=== PATIENT | male | born 1950 | race Caucasian/White ===

== ENCOUNTER 2016-12-31 09:59 | Emergency (ER) | payer OTHER ==
[~2016-12-31] VITALS: Ht 172.7 cm; Wt 81.8 kg
[2016-12-31 10:00] VITALS: BP 151/82; PULSE 71; RESP 18; TEMP 98.3; O2SAT 94
[2016-12-31] MEDS ORDERED: LIDOCAINE HCL 1% 50 ML VIAL INFIL ONE (10:15)
[2016-12-31] MEDS ORDERED: ASPI81CH6 CHEW (10:15)
[2016-12-31] MEDS ORDERED: NEXI20CA PO (10:15)
[2016-12-31] MEDS ORDERED: ATEN50TA PO (10:15)
[2016-12-31] MEDS ORDERED: HYDR50TA3 PO (10:15)
[2016-12-31] MEDS ORDERED: ROSU5 PO (10:15)
--- NOTE | 2016-12-31 10:28 | RADRPT ---
EXAM DATE/TIME: 12/31/2016 10:17 [place] COMPARISON: No previous studies available for comparison. INDICATIONS : Right thumb laceration after cutting finger on saw MEDICAL HISTORY : None. SURGICAL HISTORY : None. ENCOUNTER: Initial ACUITY: 1 day PAIN SCORE: 3/10 LOCATION: Right thumb FINDINGS: Slightly comminuted tuft fracture of the right thumb. No radiopaque foreign bodies. Associated soft t issue injury involving the palmar aspect of the distal thumb. CONCLUSION: 1. Slightly comminuted right thumb tuft fracture. Kwasi Aldrich MD on December 31, 2016 at 10:25 Board Certified Radiologist. This report was verified electronically.
[2016-12-31] MEDS ORDERED: ceFAZolin 2 GM PREMIX 50 ML IV ONE (11:15)
--- NOTE | 2016-12-31 12:29 | PD ---
HPI Chief Complaint: Laceration/Skin Injury Time Seen by Provider: 10:09 Travel History International Travel<30 days: No Contact w/Intl Traveler<30days: No Traveled to known affect area: No History of Present Illness HPI 66-year-old male here with laceration to his right thumb caused by a wood saw. Injury occurred prior to arrival. Patient reports normal sensation and full range of motion of thumb. He has a 3 cm laceration to the distal aspect of the thumb. Bleeding is well-controlled. Tetanus immunization is up-to-date. Patient reports pain at the site of the laceration with no alleviating factors. PFSH Past Medical History Hx Anticoagulant Therapy: Yes (ASA 81MG DAILY) High Cholesterol: Yes GERD: Yes Hypertension: Yes Tetanus Vaccination: < 5 Years Influenza Vaccination: No Past Surgical History Surgical History: No Previous Surgery Social History Alcohol Use: Yes (DAILY WINE TASTING) Tobacco Use: No Substance Use: No Allergies-Medications (Allergen,Severity, Reaction): Coded Allergies: No Known Allergies (Verified Allergy, Severe, 12/31/16) Reported Meds & Prescriptions Reported Meds & Active Scripts Active Keflex (Cephalexin) 500 Mg Cap 500 Mg PO Q6H 7 Days Reported Aspirin Low Dose (Aspirin) 81 Mg Chew 81 Mg CHEW DAILY Crestor (Rosuvastatin Calcium) 5 Mg Tab 5 Mg PO DAILY Nexium (Esomeprazole DR) 20 Mg Capdr 20 Mg PO DAILY Hydrochlorothiazide 50 Mg Tab 50 Mg PO DAILY Atenolol 50 Mg Tab 50 Mg PO DAILY Review of Systems Except as stated in HPI: all other systems reviewed are Neg Physical Exam Narrative GENERAL: Well-nourished, well-developed patient. In no acute distress. SKIN: Focused skin assessment warm/dry. 3CM laceration to the distal aspect of the right thumb. No tendon injury. No visible bone. Fingernail is firmly in place. Brisk cap refill HEAD: Normocephalic. EYES: No scleral icterus. No injection or drainage. NECK: Supple, trachea midline. No JVD or lymphadenopathy. CARDIOVASCULAR: Regular rate and rhythm without murmurs, gallops, or rubs. RESPIRATORY: Breath sounds equal bilaterally. No accessory muscle use. GASTROINTESTINAL: Abdomen soft, non-tender, nondistended. MUSCULOSKELETAL: No cyanosis, or edema. Attention to the right hand: 3CM laceration to the distal aspect of the right thumb. No tendon injury. No visible bone. Fingernail is firmly in place. She is able to flex and extend the digit. Brisk cap refill BACK: Nontender without obvious deformity. No CVA tenderness. Data Data Last Documented VS Vital Signs Date Time Temp Pulse Resp B/P (MAP) Pulse Ox O2 Delivery O2 Flow Rate FiO2 12/31/16 10:00 98.3 71 18 151/82 (105) 94 Orders Orders Finger ([id number]) (12/31/16 ) Lidocaine 1% Inj (50 Ml) (Xylocaine 1% I (12/31/16 10:15) Cefazolin 2 Gm Premix (Ancef 2 Gm Premix (12/31/16 11:15) MDM Medical Decision Making Medical Screen Exam Complete: Yes Emergency Medical Condition: Yes Differential Diagnosis Finger laceration, finger fracture, tendon laceration Narrative Course 66-year-old male here with laceration to his right thumb caused by a wood saw. Injury occurred prior to arrival. Patient reports normal sensation and full range of motion of thumb. He has a 3 cm laceration to the distal aspect of the thumb. The nail bed is firmly in place. No visible bone. X-ray show a comminuted distal tuft fracture. The case was discussed with on-call hand surgeon Dr. Groves. He recommends extensive irrigation, antibiotics, closure , splinting and follow-up with hand surgeon. This was discussed with patient. He is from [place] and returning home on Thursday. He reports that he can follow- up at home. Return precautions were discussed. Patient verbalizes understanding and agrees to plan Procedures Procedure Narrative LACERATION LOCATION: Right thumb distal aspect LENGTH: 3 cm NUMBER OF STITCHES/ZACH: 10 REPAIR: The area of the laceration was prepped with Betadine and sterilely draped. Digital block performed using 1% lidocaine to the right thumb. The wound was copiously irrigated and explored without evidence of foreign body, tendon injury or neurovascular injury. The wound was closed using 4-0 Prolene. This was a single layer repair. A sterile dressing was applied. The patient was advised to keep the dressing clean and dry. Patient tolerated the procedure well. Finger splint applied Diagnosis Primary Impression: Laceration of right thumb Qualified Codes: S61.111A - Laceration without foreign body of right thumb with damage to nail, initial encounter Additional Impression: Open fracture of tuft of distal phalanx of thumb Referrals: Hand Surgeon Additional Instructions: Take the antibiotics as prescribed. Do not submerge the wound in water. You may begin washing the area with soap and water daily starting tomorrow. Apply a small amount of ointment and dry dressing. Where the finger splint daily. Follow up with your primary doctor or hand surgeon when you return to [place]. Return to the emergency department if he developed new or worsening symptoms. Scripts Cephalexin (Keflex) 500 Mg Cap 500 MG PO Q6H for Infection for 7 Days, #28 CAP 0 Refills Prov: Pat Ball 12/31/16 Disposition: 01 DISCHARGE HOME Condition: Stable Pat Ball Dec 31, 2016 12:29
[2016-12-31] MEDS ORDERED: CEPH-460 PO (12:37)
== END 2016-12-31 12:50 | disposition home or self-care (01) ==
LOC: PHEFT 09:59
DX: S61.011A Laceration without foreign body of right thumb without damage to nail, initial encounter (principal); S62.521B Displaced fracture of distal phalanx of right thumb, initial encounter for open fracture; I10 Essential (primary) hypertension; E78.00 Pure hypercholesterolemia, unspecified; Y28.8XXA Contact with other sharp object, undetermined intent, initial encounter; Z79.82 Long term (current) use of aspirin; Z79.899 Other long term (current) drug therapy
CPT/HCPCS: 12002; 73140; 96365; 99284; J0690